=== PATIENT | female | born 1985 | race Caucasian/White ===

== ENCOUNTER 2018-09-03 16:04 | Emergency (ER) | payer SELFPAY ==
[2018-09-03 16:18] VITALS: TEMP 98.3
[2018-09-03] MEDS ORDERED: ONDANSETRON ODT 8 MG TAB SL ONE (17:19)
[2018-09-03] MEDS ORDERED: AZITHROMYCIN 250 MG TAB PO ONE (17:19)
[2018-09-03] MEDS ORDERED: metroNIDAZOLE 500 MG TAB PO ONE (17:20)
[2018-09-03] MEDS ORDERED: cefTRIAXone SODIUM 1 GM VIAL IM ONE (17:20)
--- NOTE | 2018-09-03 18:14 | ED.PDOC ---
History of Present Illness - General Chief Complaint: Problem Stated Complaint: vaginal soreness,discharge Time Seen by Provider: 09/03/18 16:14 Source: patient Exam Limitations: no limitations - History of Present Illness Initial Comments: the patient is a 33-year-old female presenting to the emergency room secondary to dysuria and significant vaginal discharge present and worsening over the last 3 weeks. No fevers. No pain with walking. No recurrent urinary tract infections and no known history of any STDs. Timing/Duration: other - 3 weeks Severity: moderate Improving Factors: nothing Worsening Factors: nothing Associated Symptoms: malaise Allergies/Adverse Reactions: Allergies NO KNOWN ALLERGY Allergy (Verified 05/02/16 14:06) Home Medications: Ambulatory Orders NK [NK] 12/18/14 Review of Systems - Review of Systems Constitutional: States: no symptoms reported EENTM: States: no symptoms reported Respiratory: States: no symptoms reported Cardiology: States: no symptoms reported Gastrointestinal/Abdominal: States: no symptoms reported Genitourinary: States: discharge, dysuria, pain Musculoskeletal: States: no symptoms reported Skin: States: no symptoms reported Neurological: States: no symptoms reported Endocrine: States: no symptoms reported All other Systems: No Change from Baseline Past Medical History (General) - Patient Medical History Hx Stroke: No Hx Asthma: No Hx Congestive Heart Failure: No Hx Hypertension: No Hx Diabetes: No Hx MRSA: No Surgical History: appendectomy - Vaccination History Hx Tetanus, Diphtheria Vaccination: No Hx Influenza Vaccination: No Hx Pneumococcal Vaccination: No - Social History Hx Tobacco Use: Yes Hx Alcohol Use: No Hx Substance Use: No Hx Substance Use Treatment: No Hx Depression: No - Female History Patient is a Female of Child Bearing Age (10 -59 yrs old): Yes Patient : No Family Medical History - Family History Mother Family History: Unknown Physical Exam - Physical Exam General Appearance: Alert, Comfortable, No apparent distress Eye Exam: bilateral normal Ears, Nose, Throat: hearing grossly normal Neck: non-tender Respiratory: no respiratory distress, no accessory muscle use Cardiovascular/Chest: normal peripheral pulses, no edema Peripheral Pulses: radial,right: 2+, radial,left: 2+ Gastrointestinal/Abdominal: non tender, soft Rectal Exam: deferred, other - pelvic exam shows significant vaginitis. She does have some excoriations just at the entry to the vagina. Cervix does appear inflamed. No true cervical motion tenderness. Significant vaginal discharge is present. 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 She does at least have Trichomonas. She was given 2 g of metronidazole for this. If symptoms recur over the coming months then she needs to be retested as some strains are resistant. Gonorrhea and chlamydia and HSV testing have been sent off. The patient has empirically received a dose of Rocephin and azithromycin. 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 ER warnings were given for any significant worsening. - Results/Orders Results/Orders: wet prep is positive for Trichomonas GC chlamydia and HSV testing are send outs Departure - Departure Clinical Impression: Trichomonas vaginitis Disposition: Discharge to Home or Self Care Condition: Fair Departure Forms: ED Discharge - Pt. Copy, Patient Portal Self Enrollment Instructions: Trichomoniasis (DC) Diet: regular diet Activity: increase activity as tolerated Home Medications: Ambulatory Orders NK [NK] 12/18/14 Additional Instructions: the patient is a 33-year-old female presented to emergency room with dysuria and vaginal discharge. She does at least have Trichomonas. She was given 2 g of metronidazole for this. If symptoms recur over the coming months then she needs to be retested as some strains are resistant. Gonorrhea and chlamydia and HSV testing have been sent off. The patient has empirically received a dose of Rocephin and azithromycin. 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 ER warnings were given for any significant worsening.
[2018-09-03 18:24] VITALS: BP 112/79; O2SAT 99
== END 2018-09-03 18:24 | disposition home or self-care (01) ==
LOC: ER 16:04
DX: A59.01 Trichomonal vulvovaginitis (principal); Z87.891 Personal history of nicotine dependence
CPT/HCPCS: 87210; 87254; 87491; 87591; J0696; Q0144